=== PATIENT | male | born 2000 | race Caucasian/White ===

== ENCOUNTER 2020-07-18 09:29 | Emergency (ER) | payer BC ==
[~2020-07-18] VITALS: Ht 175.3 cm; Wt 77.1 kg
[2020-07-18] MEDS ORDERED: FLUORESCEIN SOD(OPTH) 1 MG STRP OP ONE (09:45)
[2020-07-18] MEDS ORDERED: TETRACAINE HCL 0.5% OPTH SOLN 4 ML BTL OP ONE (09:45)
[2020-07-18] MEDS ORDERED: EYE IRRIGATION (OPTH) 120 ML BTL OP ONE (09:45)
[2020-07-18] MEDS ORDERED: TETANUS/DIPHTHERIA TOX ADULT 0.5 ML SYR IM ONE (10:00)
[2020-07-18] MEDS ORDERED: HYDROCODONE/APAP 7.5MG-325MG 1 EA TAB PO ONE (10:00)
[2020-07-18] MEDS ORDERED: CYCLOPENTOLATE HCL 1% OPTH SOLN 2ML BTL OD ONE (10:15)
== END 2020-07-18 10:55 | disposition home or self-care (01) ==
LOC: ER 09:32
DX: S05.01XA Injury of conjunctiva and corneal abrasion without foreign body, right eye, initial encounter (principal); H57.11 Ocular pain, right eye
CPT/HCPCS: 90471; 90714; 99283